=== PATIENT | female | born 1965 | race Caucasian/White ===

== ENCOUNTER → 2016-10-13 | Outpatient (CLI) | payer BC ==
[~2016-10-13] MED LIST: EFFEXOR XR75 MG PO; [UNRECOGNIZED DRUG - REMARK]
== END ==
LOC: MAMO 09:25 → US 10:30
DX: Z12.31 Encounter for screening mammogram for malignant neoplasm of breast (principal); E88.09 Other disorders of plasma-protein metabolism, not elsewhere classified; R53.83 Other fatigue
CPT/HCPCS: 76705; G0202

== ENCOUNTER 2021-02-23 17:42 | Emergency (ER) | payer BC ==
[~2021-02-23 17:42] MED LIST changes: +ASPIR 8181 MG PO; +COLACE100 MG PO; +DIOVAN80 MG PO; +ESTRACE1 MG PO; +HYDROCHLOROTHIA25 MG PO; +IBUPROFEN600 MG PO; +LIPITOR TAB 2020 MG PO; +NORCO 5-325 TA1 EACH PO; +PEPCID20 MG PO; +PROGESTERONE200 MG PO; +TOPROL XL50 MG PO; +ZANTAC 150 MG150 MG PO
[2021-02-23 19:58] LABS: HEMOGLOBIN 17.4 gm/dl (12.3-15.3); RED BLOOD COUNT 5.31 M/UL (4.00-5.10); WHITE BLOOD COUNT 8.3 K/UL (4.5-11.0)
[2021-02-23 20:15] LABS: BUN/CREATININE RATIO 21 (0-10)
[2021-02-23] MEDS ORDERED: PRILOSEC OTC20 MG PO (21:05)
[2021-02-23] MEDS ORDERED: LASIX20 MG PO (21:05)
[2021-02-23] MEDS ORDERED: GABAPENTIN600 MG PO (21:05)
== END 2021-02-23 21:35 | disposition home or self-care (01) ==
LOC: ER1 17:42
PROVIDERS: Physician Assistant
DX: S91.302A Unspecified open wound, left foot, initial encounter (principal); X58.XXXA Exposure to other specified factors, initial encounter; Z90.49 Acquired absence of other specified parts of digestive tract; Z90.710 Acquired absence of both cervix and uterus
CPT/HCPCS: 73630; 80053; 85025; 85652; 86140; 99283

== ENCOUNTER → 2021-02-26 | Outpatient (CLI) | payer BC ==
[~2021-02-26] MED LIST changes: +GABAPENTIN600 MG PO; +LASIX20 MG PO; +PRILOSEC OTC20 MG PO
== END ==
LOC: KOH-I 15:00 → MRI 15:23
DX: R93.89 Abnormal findings on diagnostic imaging of other specified body structures (principal); M79.5 Residual foreign body in soft tissue
CPT/HCPCS: 73718

== ENCOUNTER → 2021-03-02 | Outpatient (CLI) | payer BC | LOC: KOH-I 15:13 | DX: Z01.810 Encounter for preprocedural cardiovascular examination (principal); I73.9 Peripheral vascular disease, unspecified; L85.1 Acquired keratosis [keratoderma] palmaris et plantaris; S91.342A Puncture wound with foreign body, left foot, initial encounter | CPT/HCPCS: 93926 ==

== ENCOUNTER → 2021-03-17 | Day surgery (SDC) | payer BC ==
[~2021-03-17] VITALS: Ht 162.6 cm; Wt 82.1 kg
== END | disposition home or self-care (01) ==
LOC: OR 06:03
DX: L83 Acanthosis nigricans (principal); L57.0 Actinic keratosis; I96 Gangrene, not elsewhere classified; L03.116 Cellulitis of left lower limb; Q82.8 Other specified congenital malformations of skin; S91.302A Unspecified open wound, left foot, initial encounter; Z90.49 Acquired absence of other specified parts of digestive tract; L02.612 Cutaneous abscess of left foot; Z20.822 Contact with and (suspected) exposure to COVID-19; Z98.51 Tubal ligation status
CPT/HCPCS: 87070; 87205; J0690; J1100; J2001; J2250; J2405; J2704; J2765; J2795; J3010; J3370; J7030; J7120; Q4133

== ENCOUNTER → 2021-08-23 | Outpatient (CLI) | payer BC | LOC: KOH-I 16:06 | DX: M79.672 Pain in left foot (principal); S93.135A Subluxation of interphalangeal joint of left lesser toe(s), initial encounter; M77.8 Other enthesopathies, not elsewhere classified; X58.XXXA Exposure to other specified factors, initial encounter | CPT/HCPCS: 73630 ==

== ENCOUNTER → 2021-09-02 | Outpatient (CLI) | payer BC | LOC: KOH-I 13:45 | DX: D36.13 Benign neoplasm of peripheral nerves and autonomic nervous system of lower limb, including hip (principal); M19.072 Primary osteoarthritis, left ankle and foot | CPT/HCPCS: 73718 ==